=== PATIENT | male | born 1955 | race Caucasian/White ===

== ENCOUNTER 2023-09-25 19:42 | Emergency (ER) | payer MEDICARE, OTHER, SELFPAY ==
[2023-09-25 19:47] VITALS: BP 101/67
[2023-09-25 19:50] VITALS: BP 101/67
[2023-09-25 19:57] VITALS: BMI 29.9
[2023-09-25 20:00] VITALS: BP 104/62
--- NOTE | 2023-09-25 20:40 | ED.GENMED ---
History of Present Illness
General
Chief Complaint: Weakness
Source: patient and spouse
Exam Limitations: none
Time Seen by Provider: 09/25/23 20:20
Nursing documentation reviewed up to this point in time: agreed with
Travel History
Have you had any contact with someone who has COVID-19?: No
Do you have any symptoms of coronavirus? Fever > 100 degrees, chills, cough, shortness of breath, sore throat, loss of taste or smell, muscle aches, or headache?: Yes
Symptoms:: fever
History of Present Illness
History of Present Illness:
67-year-old male limited past medical history presents with fever nausea chills sore throat symptoms started about 5 days ago with a sore throat took some aspirin got better 2 days ago sore throat returned tonight felt nauseous with chills vomited
almost passed out EMS was called given some fluids now is feeling better no coughing no shortness of breath no abdominal pain no dysuria or frequency does have chronic back pain
Past History
Past History
ED Past Medical History: Hypercholesterolemia and Other (Kidney stones)
ED Past Surgical History: None
Social History
Tobacco: Non-smoker
Alcohol: None
Drug: None
Personal:
Living: with family
Employment: Retired
Review of Systems
Review of Systems
All Other Systems: ROS reviewed and negative except as documented in HPI and ROS
Constitutional: Reports fever, fatigue and chills
EENT: Reports sore throat
Respiratory: Reports no symptoms
Cardiac: Reports no symptoms
ABD/GI: Reports nausea and vomiting; Denies abdominal pain
: Reports no symptoms
Musculoskeletal: Reports back pain (Chronic)
Phy Exam
Physical Exam
Physical Exam:
Physical Exam
General: Nontoxic 67 male
Neck: Red throat no exudate
Heart: s1/s2 regular rate and rhythm, no murmur. equal radial pulses.
Lungs: no acute respiratory distress. clear bilaterally
Abdomen: Nontender
Neuro: alert and oriented. no focal neurological deficits
Skin: no rash
Psychiatric: well kept. interactive and cooperative
Extremities: no edema.
Course
Orders/Labs/Results
Orders:
Orders
09/25/23 20:33
IV Insert/Care/Rem.- Treatment PRN
0.9% Sodium Chloride 1000 ml [Nss] 1,000 ml IV BOLUS
Acetaminophen [Tylenol] 1,000 mg PO NOW STA
Ondansetron Injectable [Zofran] 4 mg IV NOW STA
09/25/23 21:48
COVID-19 Antigen Urgent
Source: Nasal Swab
Complete Blood Count/With Diff Urgent
Influenza A+B Rapid Molecular Urgent
SELENA Source: Nasal Swab
Specimen Description:
09/25/23 21:49
Rapid Strep Group A Urgent
SELENA Source: Throat/Pharynx
Specimen Description:
Date Specimen was Collected: 09/25/23
Time Specimen was Collected: 21:49
09/25/23 22:13
Comprehensive Metabolic Panel Urgent
09/25/23 22:35
CR Chest - 2 Views Urgent
Comment:
Reason For Exam: Sore throat fever
09/26/23 00:12
Doxycycline [Vibramycin] 100 mg PO NOW STA
Abnormal Lab Results
09/25/23
21:48
WBC 18.7 H 10^3/uL
(4.8-10.8)
RBC 4.43 L 10^6/uL
(4.70-6.10)
Hct 38.1 L %
(39.0-52.0)
MPV 10.6 H fL
(7.4-10.4)
Abs Immat Gran (auto) 0.1 H 10^3/uL
(0-0.05)
Absolute Neuts (auto) 15.8 H 10^3/uL
(1.4-6.5)
Absolute Lymphs (auto) 0.9 L 10^3/uL
(1.2-3.4)
Absolute Monos (auto) 1.8 H 10^3/uL
(0.1-0.6)
Immature Gran % 0.7 H %
(0-0.5)
Neutrophils % 84.6 H %
(42.2-75.2)
Lymphocytes % 4.8 L %
(20.5-51.1)
Monocytes % 9.5 H %
(1.7-9.3)
09/25/23 21:48
Vital Signs
Initial and Last Documented VS:
Initial Vital Signs
Temp Pulse Resp BP Pulse Ox
99.1 F 78 20 101/67 98
09/25/23 19:47 09/25/23 19:47 09/25/23 19:47 09/25/23 19:47 09/25/23 19:47
Last Documented Vital Signs
Temp Pulse Resp BP Pulse Ox
99.1 F 78 15 104/62 97
09/25/23 19:47 09/25/23 20:00 09/25/23 20:00 09/25/23 20:00 09/25/23 20:00
MDM/Problems Addressed
Differential Diagnosis Includes:
Viral syndrome strep dehydration
MDM/Problems Addressed:
Fever sore throat nausea
*Pulse Oximetry
Patient hypoxic: no
*Critical Care Note
Total Time (30-74mins, 75-104mins- exclusive of procedures): Not Applicable
Update Note
Update Note:
Update patient is nontoxic no chest pain or shortness of breath lungs are clear, is immunized for COVID and the flu
Feeling better after fluids from EMS hydrate give some Tylenol check viral swabs rapid strep swab
12:15 AM patient feeling better chest x-ray noted formal report pending electrolytes have hemolyzed repeat will treat empirically
ED Attending Note
-
Portions of this chart may have been created with voice recognition software.� Occasional wrong word or��sound alike� substitutions may have occurred due to the inherent limitations of voice recognition software.
Discharge Plan
Departure
Patient Disposition: Home (Routine Discharge)
Date of Disposition: 09/26/23
Time of Disposition: 00:12
Patient with high blood pressure during this ER visit?: No
Condition: Good
Covid-19: Negative COVID-19
Discharge Problem:
Acute sore throat
Prescriptions:
No Action
Aspirin Low (Enteric Coated):
81 mg PO DAILY
Atorvastatin
20 mg PO DAILY
escitalopram oxalate 5 MG tablet
5 mg PO DAILY
Omeprazole
20 mg PO DAILY
Vascepa
1,000 mg PO BID
Vitamin D3:
1,000 unit PO DAILY
levofloxacin 250 MG tablet
250 mg PO DAILY Qty: 5 0RF
Referrals:
Vy Ellsworth MD [Family Provider] - Next open appointment
Activity Restrictions/Additional Instructions:
Tylenol every 4-6 hours for fever
Doxycycline twice a day
Interventions
Interventions:
*Risk Screen - Suicide Last Done: 09/25/23 19:47
*General Assessment Last Done: 09/25/23 19:47
*Neglect/Abuse Screening Last Done: 09/25/23 19:47
ED- Fall Risk Assessment Last Done: 09/25/23 19:57
*ED COVID-19 Vaccine History Last Done: 09/25/23 19:57
ED- Cardiac Assessment Last Done: 09/25/23 19:57
ED- Neurological Assessment Last Done: 09/25/23 19:57
ED- Pulmonary Assessment Last Done: 09/25/23 19:57
[2023-09-25 21:00] VITALS: BP 103/64
[2023-09-25] MEDS: NSS 1000 IV (21:28)
[2023-09-25] MEDS: TYLENOL 1000 MG PO (21:43)
[2023-09-25] MEDS: ZOFRAN 4 MG IV (21:43)
[2023-09-25 22:00] VITALS: BP 105/66
[2023-09-25 22:04] LABS: % Basophils 0.3 % (0-2); % Eosinophils 0.1 % (0-6); % Immature Granulocytes 0.7 % (0-0.5); % Lymphocytes 4.8 % (20.5-51.1); % Monocytes 9.5 % (1.7-9.3); % Neutrophils 84.6 % (42.2-75.2); Absolute Basophils 0.1 10^3/uL (0-0.2); Absolute Immature Granulocytes 0.1 10^3/uL (0-0.05); Absolute Lymphocytes 0.9 10^3/uL (1.2-3.4); Absolute Monocytes 1.8 10^3/uL (0.1-0.6); Absolute Neutrophils 15.8 10^3/uL (1.4-6.5); Hematocrit 38.1 % (39.0-52.0); Hemoglobin 13.7 g/dL (13.0-18.0); Mean Corpuscular Hgb 30.9 pg (27.0-31.0); Mean Platelet Volume 10.6 fL (7.4-10.4); Nucleated Red Blood Cells % 0 % (-); Platelet Count 185 10^3/uL (130-400); Red Blood Cell Count 4.43 10^6/uL (4.70-6.10); Red Cell Dist. Width 12.2 % (11.5-14.5); White Blood Cell Count 18.7 10^3/uL (4.8-10.8)
[2023-09-25 22:27] LABS: COVID-19 Antigen Negative (Negative)
[2023-09-25 23:00] VITALS: BP 97/83
[2023-09-26] MEDS: VIBRAMYCIN 100 MG PO (00:26)
[2023-09-26 00:39] LABS: ALT (SGPT) 26 U/L (0-50); AST (SGOT) 29 U/L (17-59); Albumin 3.7 g/dl (3.5-5.0); Alkaline Phosphatase 48 U/L (38-126); Blood Urea Nitrogen 20 mg/dl (9-20); Calcium 8.5 mg/dl (8.4-10.2); Carbon Dioxide 25 mmol/L (22-30); Chloride 105 mmol/L (98-107); Estimated Creatinine Clearance 81 ml/min; Glucose 104 mg/dl (70-99); Potassium 3.7 mmol/L (3.5-5.1); Sodium 134 mmol/L (135-145); Total Bilirubin 0.7 mg/dl (0.2-1.3); Total Protein 6.4 g/dl (6.3-8.2); eGFR > 60.00
== END 2023-09-26 00:36 | disposition home or self-care (01) ==
LOC: EMR 19:42
PROVIDERS: EMERGENCY PHYSICIAN Emergency Medicine; FAMILY PHYSICIAN Family Medicine
DX: J02.9 Acute pharyngitis, unspecified (principal); Z11.52 Encounter for screening for COVID-19
CPT/HCPCS: 99284; 96374; 96361; 71046; 80053; 85025; 87070; 87147; 87502; 87811; 87880

== ENCOUNTER → 2024-04-23 10:07 | Outpatient (REF) | payer MEDICARE, OTHER, SELFPAY | LOC: HWRAD 10:07 | PROVIDERS: ATTENDING PHYSICIAN Family Medicine; FAMILY PHYSICIAN Family Medicine | DX: Z87.891 Personal history of nicotine dependence (principal); Z12.2 Encounter for screening for malignant neoplasm of respiratory organs | CPT/HCPCS: 71271 ==

== ENCOUNTER → 2024-05-29 14:33 | Outpatient (REF) | payer MEDICARE, OTHER, SELFPAY | LOC: HWRAD 14:33 | PROVIDERS: ATTENDING PHYSICIAN Family Medicine | DX: M48.10 Ankylosing hyperostosis [Forestier], site unspecified (principal); M25.561 Pain in right knee; M25.551 Pain in right hip | CPT/HCPCS: 72110; 73502; 73562; 73565 ==

== ENCOUNTER → 2025-01-13 12:45 | Outpatient (REF) | payer MEDICARE, OTHER, SELFPAY | LOC: CLAB 12:45 | PROVIDERS: ATTENDING PHYSICIAN Orthopaedic Surgery Hand Surgery | DX: M67.442 Ganglion, left hand (principal) | CPT/HCPCS: 88304 ==

== ENCOUNTER → 2025-03-30 14:08 | Outpatient (REF) | payer MEDICARE, OTHER, SELFPAY | LOC: HWRAD 14:08 | PROVIDERS: ATTENDING PHYSICIAN Family Medicine | DX: R93.7 Abnormal findings on diagnostic imaging of other parts of musculoskeletal system (principal); M85.89 Other specified disorders of bone density and structure, multiple sites | CPT/HCPCS: 77080 ==

== ENCOUNTER → 2025-06-10 09:20 | Outpatient (REF) | payer MEDICARE, OTHER, SELFPAY | LOC: HWRAD 09:20 | PROVIDERS: ATTENDING PHYSICIAN Family Medicine | DX: Z87.891 Personal history of nicotine dependence (principal) | CPT/HCPCS: 71271 ==